=== PATIENT | female | born 1960 | race Caucasian/White ===

== ENCOUNTER 2017-06-28 13:26 | Emergency (ER) | payer BC ==
--- NOTE | 2017-06-28 13:45 | EDM.PDOC ---
ED HPI GENERAL MEDICAL PROBLEM - General Chief Complaint: Lower Extremity Injury/Pain Stated Complaint: SWELLING IN RT LEG FOLLOWING SURGERY Time Seen by Provider: 06/28/17 13:45 Source of Information: Reports: Patient History Limitations: Reports: No Limitations - History of Present Illness INITIAL COMMENTS - FREE TEXT/NARRATIVE: 57-year-old female presents to the ED with increased swelling right lower extremity particular medial aspect of the ankle bone. Note she is had a partial total knee replacement one week ago. She appreciated some swelling bruising around the knee but over the last few days has increased swelling in her calf lower extremity and particularly the medial aspect of her right ankle. She states it is painful around the right medial malleolus. Also some pain in the lateral mid gastrocnemius muscle. No past history of DVT. She is on aspirin once daily. She was never placed on anticoagulants. No shortness of breath no pleuritic chest pain no hemoptysis. Onset: Gradual Onset Date: 06/26/17 Duration: Day(s): Location: Reports: Lower Extremity, Right Quality: Reports: Ache Severity: Moderate Improves with: Reports: Rest Worsens with: Reports: Other Context: Reports: Other. 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: Other (see below) (Her usual medications.) Right Knee Pain Score (Numeric/FACES): 5 - Related Data Allergies Allergy/AdvReac Type Severity Reaction Status Date / Time codeine Allergy Hives Verified 06/28/17 13:42 Penicillins Allergy Hives Verified 06/28/17 13:42 Home Meds: Home Meds Acetaminophen [Tylenol] 650 mg PO Q6H PRN 06/28/17 [History] Acetaminophen/Diphenhydramine [Tylenol Pm Ex-Strength Caplet] 2 tab PO BEDTIME PRN 06/28/17 [History] Ascorbate Calcium [Vitamin C] 500 mg PO DAILY 06/28/17 [History] Aspirin 325 mg PO BID 06/28/17 [History] Bisacodyl 10 mg RC DAILY PRN 06/28/17 [History] Calcium Carbonate/Vitamin D3 [Calcium 500-Vit D3 600 Caplet] 2 tab PO BID [History] Desvenlafaxine Succinate [Desvenlafaxine Succinate ER] 50 mg PO DAILY 06/28/17 [ History] Gabapentin [Neurontin] 100 mg PO TID 06/28/17 [History] Hydrochlorothiazide 12.5 mg PO DAILY 06/28/17 [History] Levothyroxine Sodium [Synthroid] 125 mcg PO DAILY 06/28/17 [History] Losartan [Cozaar] 50 mg PO BID 06/28/17 [History] Magnesium Hydroxide [Milk of Magnesia] 30 ml PO BID PRN 06/28/17 [History] Multivitamin With Minerals. 1 tab PO DAILY 06/28/17 [History] Omeprazole [priLOSEC OTC] 20 mg PO DAILY 06/28/17 [History] Polyethylene Glycol [Polyox Wsr-301] 17 gram PO DAILY PRN 06/28/17 [History] Pravastatin Sodium 10 mg PO DAILY 06/28/17 [History] Ubidecarenone [Co Q-10] 100 mg PO DAILY 06/28/17 [History] Vitamin B Complex 1 cap PO DAILY 06/28/17 [History] hydrOXYzine HCl [Atarax] 25 mg PO Q4H PRN 06/28/17 [History] oxyCODONE [Oxycodone HCl] 10 mg PO Q4H PRN 06/28/17 [History] Past Medical History Psychiatric History: Reports: Depression Endocrine/Metabolic History: Reports: Hypothyroidism (On levothyroxine supplement) - Past Surgical History Musculoskeletal Surgical History: Reports: Knee Replacement (Medial or partial knee replacement done on the right side one week ago.) Social & Family History - Living Situation & Occupation Living situation: Reports: Occupation: Employed Review of Systems - Review of Systems Review Of Systems: See Below Constitutional: Denies: Chills, Diaphoresis, Fever, Weakness Eyes: Reports: No Symptoms Ears: Reports: No Symptoms Nose: Reports: No Symptoms Mouth/Throat: Reports: No Symptoms Respiratory: Reports: No Symptoms Cardiovascular: Reports: No Symptoms GI/Abdominal: Reports: No Symptoms Genitourinary: Reports: No Symptoms Musculoskeletal: Reports: Joint Pain Skin: Reports: No Symptoms (Right knee pain with swelling) Neurological: Reports: No Symptoms Psychiatric: Reports: No Symptoms ED EXAM, GENERAL - Physical Exam Exam: See Below Exam Limited By: No Limitations General Appearance: Alert, WD/WN, Anxious, Mild Distress Eye Exam: Bilateral Eye: Normal Inspection Ear Exam: Right Ear: TM Bulging Respiratory/Chest: No Respiratory Distress, Lungs Clear, Normal Breath Sounds, No Accessory Muscle Use, Chest Non-Tender Cardiovascular: Normal Peripheral Pulses, Regular Rate, Rhythm, No Edema, No Gallop, No Murmur Peripheral Pulses: 2+: Posterior Tibial (L), Posterior Tibial (R), Dorsalis Pedis (L), Dorsalis Pedis (R) GI/Abdominal: Normal Bowel Sounds, Soft, Non-Tender, No Organomegaly Extremities: Other (Examination limited primarily to her right lower extremity. She's had recent midline surgical incision to the right knee. There is age- appropriate amount of postoperative swelling and ecchymoses. The wound itself appears to be healing satisfactorily without signs of infection. She does have some fluid in the posterior aspect of the knee or popliteal fossa. Some tenderness along the greater saphenous vein medially. She believes she had a trachea in place mid thigh intraoperatively. Lower extremity shows some pain with some swelling or induration within the medial belly of the right lateral gastrocnemius muscle. Most the swelling is medial aspect of the ankle particularly over the medial malleolus with a proximally 6 cm swelling which is quite ecchymotic. It is mildly tender palpation.) Neurological: Alert, Oriented, CN II-XII Intact, Normal Cognition, Normal Gait Psychiatric: Normal Affect, Normal Mood Skin Exam: Warm, Dry, Intact, Other (Ecchymoses right lower extremity is described above.) Course - Vital Signs Last Recorded V/S: Last Vital Signs Temp 36.7 C 06/28/17 13:42 Pulse 84 06/28/17 13:42 Resp 16 06/28/17 13:42 BP 162/78 H 06/28/17 13:42 Pulse Ox 97 06/28/17 13:42 - Radiology Interpretation Free Text/Narrative:: 49-year-old female presents to the ED with increased swelling right lower extremity postop total knee replacement at least partially 1 week ago. Concern is for DVT. Clinically I could find no pain in the midline of the calf to suggest DVT. There is minimal edema. It appears that the blood has traversed down the leg from gravity effect to the ankle particularly the medial aspect. However there is pain and swelling within the right gastrocnemius muscle. Dorsalis pedis and posterior distal tibial pulses. Plan - Re-Assessments/Exams Free Text/Narrative Re-Assessment/Exam: 06/28/17 16:00; Doppler ultrasound reveals complex cyst or hematoma in the popliteal fossa only. No DVT is evident up to the groin. Patient reassured in this regard. Heat packs to the area of swelling to truly reduce the blood in the soft tissues. Elevate the leg is much as possible. Continue activity as tolerated to her present program. No change in medications made. Follow-up with personal care physician or orthopedic surgeon if any further problems occur Departure - Departure Time of Disposition: 15:44 Disposition: Home, Self-Care 01 Condition: Fair Clinical Impression: Swelling of right lower extremity - Discharge Information Instructions: Edema Referrals: Paulino Stokes MD [Primary Care Provider] - Forms: ED Department Discharge Additional Instructions: Evaluationin in the emergency room today in regards to increased swelling right lower extremity since you had partial knee replacement surgery 6 days ago. There is a ecchymoses or bruising and swelling along the medial aspect of your ankle. This appears to be blood that his leaked down through the soft tissues of your leg by gravity into your ankle. History of mid thigh tourniquet on the mid thigh during the operation to limit loss of blood during the surgery ,can sometimes cause problems with the greater saphenous vein in the thigh. Therefore a Doppler ultrasound was carried out up to the groin on the Rt side. . It did not reveal any sign of blood clot in the deep venous system. There is a small Plascencia's cyst behind your knee on the ultrasound which is of no significance. At any rate no further intervention or treatment is required at this time. Heat packs to the area one half hour 4 times daily will help the blood in the soft tissues reabsorb a little faster. Elevate the leg is much as possible . As we discussed need for a compression stocking is advised -- on during the day and off at night.
--- NOTE | 2017-06-28 15:49 | US ---
Right lower extremity deep venous ultrasound: Duplex and color flow imaging was obtained of the right common femoral, proximal greater saphenous, superficial femoral, popliteal, posterior tibial and peroneal veins. Left common femoral vein was also evaluated. Findings: Normal phasic flow, augmentation and compression is seen. Small complicated popliteal cyst or hematoma is noted on the right side measuring 2.9 cm in greatest dimension. Incidental right inguinal lymph node is incidentally noted. Impression: 1. No evidence of deep venous thrombosis within the right lower extremity or left common femoral vein. 2. 2.9 cm complicated popliteal cyst or hematoma on the right side. Diagnostic code #2
== END 2017-06-28 16:10 | disposition home or self-care (01) ==
LOC: JD.ED 13:26
DX: M96.840 Postprocedural hematoma of a musculoskeletal structure following a musculoskeletal system procedure (principal); E03.9 Hypothyroidism, unspecified; Z79.82 Long term (current) use of aspirin; Z88.5 Allergy status to narcotic agent; Z88.0 Allergy status to penicillin; Z79.899 Other long term (current) drug therapy; Z96.651 Presence of right artificial knee joint
CPT/HCPCS: 93971-26-RT; 93971-RT; 99283; 99284-25

== ENCOUNTER 2019-11-10 16:40 | Emergency (ER) | payer BC ==
--- NOTE | 2019-11-10 18:37 | EDM.PDOC ---
ED HPI GENERAL MEDICAL PROBLEM - General Chief Complaint: Flank Pain Stated Complaint: KIDNEY STONE Time Seen by Provider: 11/10/19 18:03 Source of Information: Reports: Patient History Limitations: Reports: No Limitations - History of Present Illness INITIAL COMMENTS - FREE TEXT/NARRATIVE: Mrs. Santacruz is a very pleasant 59-year-old woman with a past medical history significant for 3 episodes of kidney stones, who now presents the ED stating that she developed right lower back pain with sporadic radiation to her right lower quadrant, 5 days ago, which then broadened to include left lower back pain with occasional radiation to her left lower quadrant, about 24 hours ago. No associated fever, nausea, vomiting, constipation, diarrhea, or urinary symptoms. She saw her chiropractor twice, but her symptoms did not improve, and he suggested that it might be a kidney stone. She is also been taking Advil, Aleve, and baclofen, without improvement in her symptoms. She states that her current symptoms are similar to prior kidney stones. Here in the ED, the patient is found to be hemodynamically stable, afebrile, saturating 96% on room air. Other than her lower back and lower abdominal pain, the patient denies recent fever, chills, sore throat, ear pain, nasal or sinus congestion, cough, dyspnea, chest pain, palpitations, nausea, vomiting, constipation, diarrhea, urinary symptoms, recent weight gain or weight loss, recent bloody bowel movements or black bowel movements, recent joint aches, headaches, or rashes. The patient's PCP is Dr. Paulino Mehta, although occasionally she sees Yazmin Paulino NP. Her Net C Developer is Dr. Jillian Martínez, [facility]. She does not recall the name of her Orthopedic Surgeon, in [place]. Bilateral Flank Pain Score (Numeric/FACES): 10 - Related Data Allergies Allergy/AdvReac Type Severity Reaction Status Date / Time codeine Allergy Hives Verified 06/28/17 13:42 Penicillins Allergy Hives Verified 06/28/17 13:42 Home Meds: Home Meds Acetaminophen [Tylenol] 650 mg PO Q6H PRN 06/28/17 [History] Acetaminophen/Diphenhydramine [Tylenol Pm Ex-Strength Caplet] 2 tab PO BEDTIME PRN 06/28/17 [History] Ascorbate Calcium [Vitamin C] 500 mg PO DAILY 06/28/17 [History] Aspirin 325 mg PO BID 06/28/17 [History] Bisacodyl 10 mg RC DAILY PRN 06/28/17 [History] Calcium Carbonate/Vitamin D3 [Calcium 500-Vit D3 600 Caplet] 2 tab PO BID 06/28/17 [History] Desvenlafaxine Succinate [Desvenlafaxine Succinate ER] 50 mg PO DAILY 06/28/17 [History] Gabapentin [Neurontin] 100 mg PO TID 06/28/17 [History] Levothyroxine Sodium [Synthroid] 125 mcg PO DAILY 06/28/17 [History] Losartan [Cozaar] 50 mg PO BID 06/28/17 [History] Magnesium Hydroxide [Milk of Magnesia] 30 ml PO BID PRN 06/28/17 [History] Multivitamin With Minerals. 1 tab PO DAILY 06/28/17 [History] Omeprazole [priLOSEC OTC] 20 mg PO DAILY 06/28/17 [History] Polyethylene Glycol [Polyox Wsr-301] 17 gram PO DAILY PRN 06/28/17 [History] Pravastatin Sodium 10 mg PO DAILY 06/28/17 [History] Ubidecarenone [Co Q-10] 100 mg PO DAILY 06/28/17 [History] Vitamin B Complex 1 cap PO DAILY 06/28/17 [History] hydrOXYzine HCL [Atarax] 25 mg PO Q4H PRN 06/28/17 [History] hydroCHLOROthiazide [Hydrochlorothiazide] 12.5 mg PO DAILY 06/28/17 [History] oxyCODONE [Oxycodone HCl] 10 mg PO Q4H PRN 06/28/17 [History] Past Medical History Cardiovascular History: Reports: High Cholesterol, Hypertension Genitourinary History: Reports: Renal Calculus Musculoskeletal History: Reports: Osteoarthritis Endocrine/Metabolic History: Reports: Hypothyroidism (following thyroidectomy) Oncologic (Cancer) History: Reports: Breast (bilateral ductal hyperplasia), Thyroid (s/p thyroidectomy) - Past Surgical History Female Surgical History: Reports: Breast Reconstruction (bilateral) Musculoskeletal Surgical History: Reports: Knee Replacement (right, partial) Oncologic Surgical History: Reports: Mastectomy (bilateral), Other (See Below) (Thyroidectomy) Social & Family History - Tobacco Use Smoking Status *Q: Former Smoker Years of Tobacco use: 28 Packs/Tins Daily: 0.5 Month/Year Tobacco Last Used: Quit 2004 - Caffeine Use Caffeine Use: Reports: Coffee - Alcohol Use Alcohol Use History: Yes Alcohol Use Frequency: Socially - Recreational Drug Use Recreational Drug Use: No - Living Situation & Occupation Living situation: Reports: , with Spouse 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 ED EXAM, GENERAL - Physical Exam Exam: See Below Exam Limited By: No Limitations General Appearance: Alert, WD/WN, No Apparent Distress Eye Exam: Bilateral Eye: EOMI, Normal Inspection Ears: Normal External Exam, Hearing Grossly Normal Nose: Normal Inspection Throat/Mouth: Normal Inspection, Normal Lips, Normal Voice, No Airway Compromise Head: Atraumatic, Normocephalic Neck: Normal Inspection, Full Range of Motion Respiratory/Chest: No Respiratory Distress, Lungs Clear, Normal Breath Sounds, No Accessory Muscle Use Cardiovascular: Normal Peripheral Pulses, Regular Rate, Rhythm, No Edema, No Gallop, No JVD, No Murmur, No Rub Peripheral Pulses: 3+: Radial (L), Radial (R) GI/Abdominal: Normal Bowel Sounds, Soft, No Organomegaly, No Distention, No Abnormal Bruit, No Mass, Tender (To the left pelvis and right pelvis only. Completely nontender elsewhere.) (Female) Exam: Deferred Rectal (Female) Exam: Deferred Back Exam: Normal Inspection, Full Range of Motion. No: CVA Tenderness (L), CVA Tenderness (R) Extremities: Normal Inspection, Normal Range of Motion, No Pedal Edema, Normal Capillary Refill Neurological: Alert, Oriented, Normal Cognition, No Motor/Sensory Deficits Psychiatric: Normal Affect Skin Exam: Warm, Dry, Intact, Normal Color, No Rash Course - Vital Signs Last Recorded V/S: Last Vital Signs Temp 36.4 C 11/10/19 17:03 Pulse 84 11/10/19 17:03 Resp 20 11/10/19 17:03 BP 120/85 11/10/19 17:03 Pulse Ox 96 11/10/19 17:03 - Orders/Labs/Meds Labs: Laboratory Tests 11/10/19 Range/Units 17:30 Urine Color Yellow (Yellow) Urine Appearance Cloudy H (Clear) Urine pH 6.5 (5.0-8.0) Ur Specific [place] 1.025 (1.005-1.030) Urine Protein Trace H (Negative) Urine Glucose (UA) Negative (Negative) Urine Ketones Trace H (Negative) Urine Occult Blood Negative (Negative) Urine Nitrite Negative (Negative) Urine Bilirubin Negative (Negative) Urine Urobilinogen 0.2 (0.2-1.0) Ur Leukocyte Esterase Negative (Negative) Urine RBC 0-5 (0-5) /hpf Urine WBC 0-5 (0-5) /hpf Ur Squamous Epith Cells 10-20 H (0-5) /hpf Amorphous Sediment Many H (NOT SEEN) /hpf Urine Bacteria Few (FEW) /hpf Fine Granular Casts 0-5 (0-5) /lpf Urine Mucus Rare (FEW) /hpf - Re-Assessments/Exams Free Text/Narrative Re-Assessment/Exam: 11/10/19 18:31 As above, the patient has had 5 days of right flank pain with occasional radiation to her right lower quadrant, then extension of her back pain to the left side, with very infrequent radiation to her left lower quadrant for the past 24 hours. No nausea, vomiting, constipation, diarrhea, urinary symptoms, or fever. Her symptoms did not improve despite chiropractic manipulation or treatment with Advil, Aleve, or baclofen. On examination, she has tenderness to both her left and right pelvises, but no abdominal tenderness elsewhere, and she has no CVA tenderness whatsoever. Her urinalysis is remarkable for occult blood negative with 0-5 RBCs, leukocyte esterase negative with 0-5 WBCs, nitrate negative with few bacteria, and 10-20 squamous epithelial cells. I explained to the patient that up to 20% of patients with kidney stones can have no blood in their urine, however, it would be highly unusual to have a kidney stone with no CVA tenderness, as well. Additionally, a kidney stone may cause pain that radiates to the abdomen, but it should not cause tenderness to the abdomen. I therefore recommended that we proceed with an evaluation of her abdominal pain and tenderness by obtaining blood work and a CT scan of her abdomen and pelvis with oral and IV contrast. The patient would prefer to not do that today, since she does not feel that her pain is very severe. Instead, she would like to follow-up with her PCP, but she did agree to return to the ED if her symptoms worsen. Departure - Departure Time of Disposition: 18:35 Disposition: Home, Self-Care 01 Condition: Good Clinical Impression: Back pain, Lower abdominal pain of unknown etiology - Discharge Information *PRESCRIPTION DRUG MONITORING PROGRAM REVIEWED*: Not Applicable *COPY OF PRESCRIPTION DRUG MONITORING REPORT IN PATIENT TREVIN: Not Applicable Referrals: Paulino Stokes MD [Primary Care Provider] - Jillian Martínez MD [Ordering Only Provider] - Additional Instructions: You were seen in the emergency room after experiencing right flank pain with occasional radiation to your lower right abdomen for the past 5 days, with left flank pain and occasional radiation to your left lower abdomen for the past 24 hours. Work-up in the ER included a urinalysis, which returned unremarkable. You do not have blood in your urine, therefore it is unlikely that you have a kidney stone, and you do not have a urinary tract infection. The cause of your symptoms is not known. A work-up that included blood work and a CT scan of your abdomen and pelvis with oral and IV contrast was offered, but declined. Follow-up with your PCP, Dr. Paulino Mehta, at the next available appointment. If, before you can see Dr. Mehta, your symptoms worsen, please do not hesitate to return to the ER for reevaluation. Sepsis Event Note (ED) - Evaluation Sepsis Screening Result: No Definite Risk - Focused Exam Vital Signs: Vital Signs Temp Pulse Resp BP Pulse Ox 11/10/19 17:03 36.4 C 84 20 120/85 96
== END 2019-11-10 18:50 | disposition home or self-care (01) ==
LOC: JD.ED 16:40
DX: M54.5 Low back pain (principal); R10.31 Right lower quadrant pain; R10.32 Left lower quadrant pain; I10 Essential (primary) hypertension; E78.00 Pure hypercholesterolemia, unspecified; E03.9 Hypothyroidism, unspecified; Z88.0 Allergy status to penicillin; Z88.5 Allergy status to narcotic agent; Z79.82 Long term (current) use of aspirin; Z87.891 Personal history of nicotine dependence; Z98.890 Other specified postprocedural states
CPT/HCPCS: 81001; 99283; 99284

== ENCOUNTER 2022-07-27 08:37 | Emergency (ER) | payer OTHER ==
[2022-07-27 09:57] LABS: ESTIMATED GFR 56 mL/min (>60)
[2022-07-27 10:19] LABS: CORONAVIRUS COVID-19 NAA NEGATIVE (NEGATIVE)
[2022-07-27] MEDS ORDERED: Iopamidol 612 MG/ML 100 ML Bottle IVPUSH ONE (12:50)
[2022-07-27] MEDS ORDERED: Sodium Chloride 0.9% 10 ML Syringe FLUSH ONE (12:50)
== END 2022-07-27 13:00 ==
LOC: JD.ED 08:37
DX: R55 Syncope and collapse (principal); I10 Essential (primary) hypertension; Z88.0 Allergy status to penicillin; Z88.5 Allergy status to narcotic agent; Z87.891 Personal history of nicotine dependence; Z20.822 Contact with and (suspected) exposure to COVID-19
CPT/HCPCS: 0241U; 36415; 71046; 74177; 80053; 81001; 83735; 83880; 84443; 84484; 85025; 85379; 85610; 85730; 86140; 93005; 99285; J3490; Q9967

== ENCOUNTER 2023-03-21 19:52 | Emergency (ER) | payer OTHER ==
[2023-03-21] MEDS ORDERED: Aspirin 81 MG Tab.Chew PO ONE (20:07)
[2023-03-21] MEDS ORDERED: Sodium Chloride 0.9% 10 ML Syringe FLUSH PRN (20:07)
[2023-03-21 20:20] LABS: BASOPHILS ABSOLUTE AUTO 0.1 K/mm3 (0.0-0.2); BASOPHILS PERCENT AUTO 0.9 % (0.0-1.0); EOSINOPHILS ABSOLUTE AUTO 0.1 K/mm3 (0.0-0.4); EOSINOPHILS PERCENT AUTO 1.2 % (0.0-6.0); HEMATOCRIT 39.3 % (37.0-47.0); HEMOGLOBIN 13.6 gm/dl (12.0-16.0); IMMATURE GRAN ABSOLUTE AUTO 0.02 K/mm3 (0.00-0.05); IMMATURE GRAN PERCENT AUTO 0.3 % (0.0-0.4); LYMPHOCYTES ABSOLUTE AUTO 2.5 K/mm3 (1.0-4.8); LYMPHOCYTES PERCENT AUTO 36.3 % (24.0-44.0); MEAN CORPUSCULAR HEMOGLOBIN 32.3 pg (28.0-32.0); MEAN CORPUSCULAR HGB CONC 34.6 g/dl (32.0-36.0); MEAN CORPUSCULAR VOLUME 93.3 fl (83.0-99.0); MONOCYTES ABSOLUTE AUTO 0.6 K/mm3 (0.0-0.8); MONOCYTES PERCENT AUTO 9.3 % (0.0-8.0); NEUTROPHILS ABSOLUTE AUTO 3.6 K/mm3 (1.8-7.7); PLATELET COUNT,PLT 289 K/mm3 (150-400); RED BLOOD CELL COUNT 4.21 M/mm3 (4.10-5.30); WHITE BLOOD CELL COUNT,WBC 6.89 K/mm3 (3.9-11.3)
[2023-03-21 20:36] LABS: PROTHROMBIN TIME 9.8 SECONDS (9.7-12.0)
[2023-03-21 20:41] LABS: D-DIMER QUANTITATIVE < 0.19 mg/L (0.19-0.50); INR < 0.93
[2023-03-21 20:42] LABS: A/G RATIO 1.2 (1-2); ALANINE AMINOTRANSFERASE,ALT 60 U/L (14-59); ALBUMIN 4.1 g/dl (3.4-5.0); ALKALINE PHOSPHATASE 100 U/L (46-116); ANION GAP 12.5 (5-15); ASPARTATE AMNIOTRANSFERASE,AST 23 U/L (15-37); BILIRUBIN TOTAL 0.2 mg/dL (0.2-1.0); BLOOD UREA NITROGEN,BUN 25 mg/dL (7-18); BUN/CREATININE RATIO 22.7 (14-18); CALCIUM 9.9 mg/dL (8.5-10.1); CARBON DIOXIDE,CO2 29 mEq/L (21-32); CHLORIDE,CL 104 mEq/L (98-107); CREATININE 1.1 mg/dL (0.55-1.02); ESTIMATED GFR 56 mL/min (>60); GLUCOSE RANDOM 110 mg/dL (70-99); MAGNESIUM 1.9 mg/dL (1.8-2.4); POTASSIUM,K 3.5 mEq/L (3.5-5.1); PROTEIN TOTAL,TP 7.5 g/dl (6.4-8.2); SODIUM,NA 142 mEq/L (136-145); TROPONIN I HIGH SENSITIVITY 6 pg/mL (<=51)
[2023-03-21 23:26] LABS: APPEARANCE,URINE CLEAR (Clear); BILIRUBIN,URINE NEGATIVE (Negative); COLOR,URINE YELLOW (Yellow); GLUCOSE,URINE NEGATIVE (Negative); KETONES,URINE NEGATIVE (Negative); LEUKOCYTE ESTERASE,URINE NEGATIVE (Negative); NITRITE,URINE NEGATIVE (Negative); OCCULT BLOOD,URINE NEGATIVE (Negative); PROTEIN,URINE NEGATIVE (Negative); UROBILINOGEN,URINE 0.2 (0.2-1.0)
[2023-03-21 23:34] LABS: RBC,URINE 0-5 /hpf (0-5); WBC,URINE 0-5 /hpf (0-5)
[2023-03-21 23:35] LABS: AMORPHOUS SEDIMENT,URINE MODERATE /hpf (NOT SEEN); BACTERIA,URINE FEW /hpf (FEW); MUCUS,URINE FEW /hpf (FEW); SQUAMOUS EPITHELIAL CELLS,UR 0-5 /hpf (0-5)
== END 2023-03-22 01:00 | disposition home or self-care (01) ==
LOC: JD.ED 19:52
DX: R07.1 Chest pain on breathing (principal); I10 Essential (primary) hypertension; E78.00 Pure hypercholesterolemia, unspecified; E03.9 Hypothyroidism, unspecified; Z86.16 Personal history of COVID-19; Z87.891 Personal history of nicotine dependence; Z88.5 Allergy status to narcotic agent; Z88.0 Allergy status to penicillin; Z79.899 Other long term (current) drug therapy
CPT/HCPCS: 36415; 71045; 80053; 81001; 83735; 84484; 85025; 85379; 85610; 93005; 99285; A9270; J3490; 93010; 99283